=== PATIENT | female | born 1985 | race Caucasian/White ===

== ENCOUNTER → 2023-01-21 | Outpatient (CLI) | payer MEDICARE, MEDICAID | LOC: ORTHO 11:26 | PROVIDERS: ATTEND Orthopaedic Surgery | DX: G56.01 Carpal tunnel syndrome, right upper limb (principal) | CPT/HCPCS: 99203 ==

== ENCOUNTER 2023-01-26 05:31 | Outpatient (CLI) | payer MEDICARE, MEDICAID ==
[~2023-01-26] VITALS: Ht 161.9 cm; Wt 76.8 kg
[2023-01-26] MEDS ORDERED: COLE625T30 PO (11:53)
[2023-01-26] MEDS ORDERED: FLUT1BLS IH (11:53)
[2023-01-26] MEDS ORDERED: ALBU8.5H6 INH (11:53)
[2023-01-26] MEDS ORDERED: LEVA1.2543 IH (11:53)
== END 2023-01-26 12:00 | disposition home or self-care (01) ==
LOC: PREOP 05:31
PROVIDERS: ATTEND Orthopaedic Surgery
DX: Z01.818 Encounter for other preprocedural examination (principal)

== ENCOUNTER 2023-01-30 07:01 | Day surgery (SDC) | payer MEDICARE, MEDICAID ==
[~2023-01-30] VITALS: Ht 161.9 cm; Wt 76.8 kg
[~2023-01-30 07:01] MED LIST: ALBU8.5H6 INH; COLE625T30 PO; FLUT1BLS IH; LEVA1.2543 IH
[2023-01-30 07:05] VITALS: BP 160/116
[2023-01-30] MEDS ORDERED: LACTATED RINGERS 1,000 ML 1,000 ML IV PRN (07:15)
[2023-01-30] MEDS ORDERED: CLINDAMYCIN 600 MG/50 ML IVPB 50 ML IV ONE (07:15)
[2023-01-30] MEDS ORDERED: LIDOCAINE 1% INJ 20 ML VIAL ONE (07:15)
[2023-01-30] MEDS ORDERED: LIDOCAINE/EPI 1%-1:200,000 (XYLOCAINE) 30 ML VIAL ONE (07:15)
[2023-01-30] MEDS ORDERED: BUPIVACAINE 0.5% 10 ML VIAL ONE (07:15)
[2023-01-30 07:51] LABS: AMPHETAMINE SCREEN, URINE POSITIVE (NEGATIVE); BARBITURATE SCREEN URINE NEGATIVE (NEGATIVE); CANNABINOID SCREEN, URINE POSITIVE (NEGATIVE); COCAINE SCREEN URINE NEGATIVE (NEGATIVE); METHADONE STAT NEGATIVE (NEGATIVE); OPIATE SCREEN URINE NEGATIVE (NEGATIVE); OXYCODONE STAT NEGATIVE (NEGATIVE); PROPOXYPHENE STAT NEGATIVE (NEGATIVE); TRICYCLIC ANTIDEPRESSANTS SCRE NEGATIVE (NEGATIVE)
== END 2023-01-30 09:00 | disposition home or self-care (01) ==
LOC: SDC 07:01
PROVIDERS: ATTEND Orthopaedic Surgery
DX: G56.01 Carpal tunnel syndrome, right upper limb (principal); Z53.09 Procedure and treatment not carried out because of other contraindication; Z28.310 Unvaccinated for COVID-19
CPT/HCPCS: 80306; 84703